=== PATIENT | female | born 1980 | race Caucasian/White ===

== ENCOUNTER 2016-08-31 12:31 | Outpatient (CLI) | payer OTHER, BC ==
[~2016-08-31] VITALS: Ht 170.2 cm; Wt 71.8 kg
[~2016-08-31 12:31] MED LIST: ALPR.25T PO; AZIT250T PO; BC PILL PO; CETI10TA17 PO; DIPH25CA79 PO; DIPH25TA82 PO; FAMO40TA6 PO; FOLI1TAB24 PO; HYDR1TAB75 PO; LORA10CA PO; MNTL10T PO; NAPR-1033 PO; NORG1TAB14 PO; OMEP10CA2 PO; OXYC-202 PO; PRD20T PO; PRD5T PO; PREN1TAB86 PO; PSEU30TA35 PO; RNT150T PO; SERT100T8 PO; [UNRECOGNIZED DRUG - CODE] PO; [UNRECOGNIZED DRUG - OTHER]
[2016-08-31] MEDS ORDERED: RANI150T15 PO (12:45)
[2016-08-31] MEDS ORDERED: OXYC-465 PO (12:45)
[2016-08-31 12:48] VITALS: BP 119/80
[2016-08-31 13:20] LABS: BASOPHILS % (AUTO) 0 % (0-10); EOSINOPHILS # (AUTO) 0.2 10^3/uL (0.0-0.3); EOSINOPHILS % (AUTO) 3 % (0-10); LYMPHOCYTES # (AUTO) 2.7 X 10^3 (1.0-4.0); LYMPHOCYTES % (AUTO) 35 % (12-44); MEAN CORPUSCULAR HEMOGLOBIN 31 PG (25-34); MEAN CORPUSCULAR HGB CONC 34 G/DL (32-36); MEAN CORPUSCULAR VOLUME 92 FL (80-99); MEAN PLATELET VOLUME 10.4 FL (7.4-10.4); MONOCYTES # (AUTO) 0.5 X 10^3 (0.0-1.0); MONOCYTES % (AUTO) 7 % (0-12); NEUTROPHILS # (AUTO) 4.3 X 10^3 (1.8-7.8); NEUTROPHILS % (AUTO) 56 % (42-75); PLATELET COUNT 192 10^3/uL (130-400); RED BLOOD COUNT 4.53 10^6/uL (4.35-5.85); RED CELL DISTRIBUTION WIDTH 12.2 % (10.0-14.5); WHITE BLOOD COUNT 7.7 10^3/uL (4.3-11.0)
== END 2016-08-31 14:25 | disposition home or self-care (01) ==
LOC: PREOP 12:31
PROVIDERS: ATTEND Obstetrics & Gynecology
DX: Z01.812 Encounter for preprocedural laboratory examination (principal); Z11.2 Encounter for screening for other bacterial diseases; N80.9 Endometriosis, unspecified; N93.8 Other specified abnormal uterine and vaginal bleeding; D64.9 Anemia, unspecified
CPT/HCPCS: 36415; 85025; 86850; 86900; 86901; 87081

== ENCOUNTER 2016-09-03 10:55 | Day surgery (SDC) | payer OTHER, BC ==
[~2016-09-03] VITALS: Ht 170.2 cm; Wt 71.8 kg
[~2016-09-03 10:55] MED LIST changes: +OXYC-465 PO; +RANI150T15 PO
[2016-09-03] MEDS ORDERED: ESTROGENS CONJ IV 25 MG/5 ML (PREMARIN) VIAL IV ONE ×2 (11:00→14:15)
[2016-09-03] MEDS ORDERED: LEVOFLOXACIN 250 MG/D5W 50 ML (PRE-MIX) IV ONE (11:00)
[2016-09-03] MEDS ORDERED: metroNIDAZOLE 500 MG/100 ML IVPB (PRE-MIX) IV ONE (11:00)
[2016-09-03 11:17] VITALS: BP 126/82
[2016-09-03] MEDS ORDERED: FAMOTIDINE 20MG/2ML IV (PEPCID) ONE (11:19)
[2016-09-03] MEDS: LACTATED RINGERS 1,000 ML IV PRN ×3 (11:29→15:10)
[2016-09-03] MEDS: fentaNYL INJECTION 100 MCG/2 ML AMP IVP NR ×2 (11:30→11:34)
[2016-09-03] MEDS ORDERED: FAMOTIDINE 20MG/2ML IV (PEPCID) IVP ONE (11:30)
[2016-09-03] MEDS ORDERED: D5 LR IV SOLUTION 1,000 ML IV SCH (11:36)
--- NOTE | 2016-09-03 11:40 | Progress Note-Post Operative ---
Post-Operative Progess Note Surgeon (s)/Access Services Representative (s) Surgeon CASIMIRO PATRICK MD Access Services Representative: Yani Broderick are in Pre-Operative Diagnosis RUSSEL/menorrhagia/uterine prolapse Post-Operative Diagnosis same with pathology pending recurrent endometriosis Procedure & Operative Findings Date of Procedure 09/03/16 Procedure Performed/Findings total laparoscopic hysterectomy with bilateral ddkiolrj-ysmrpp-mxzmejxj pathology pending Anesthesia Type Gen. endotracheal 2 Estimated Blood Loss Estimated blood loss (mL): minimal Specimens/Packing Specimens Removed uterus and fallopian tubes Packing: none CASIMIRO PATRICK MD Sep 03, 2016 11:40
--- NOTE | 2016-09-03 11:40 | Progress Note-Pre Operative ---
Pre-Operative Progress Note H&P Reviewed The H&P was reviewed, patient examined and no changes noted. Date Seen by Provider: Sep 03, 2016 Time Seen by Provider: 11:39 Date H&P Reviewed: Sep 03, 2016 Time H&P Reviewed: 11:39 Pre-Operative Diagnosis: RUSSEL/menorrhagia/uterine prolapse CASIMIRO PATRICK MD Sep 03, 2016 11:39 am
[2016-09-03] MEDS ORDERED: MEPERIDINE (DEMEROL) INJ 100 MG/ML IM PRN (11:45)
[2016-09-03] MEDS ORDERED: ONDANSETRON 4 MG/2 ML (SDV) Z0FRAN IVP PRN ×2 (11:45→15:15)
[2016-09-03] MEDS ORDERED: PROMETHAZINE INJ 25 MG/ML (PHENERGAN) AMP IM PRN (11:45)
[2016-09-03] MEDS ORDERED: WATER (STERILE) FOR INJ 10 ML BTL INJ ONE (11:45)
[2016-09-03] MEDS ORDERED: KETOROLAC 30 MG/ML VIAL IVP SCH (11:45)
[2016-09-03] MEDS ORDERED: BUP/EPI 0.25% 1:200,000 (MARCAINE) 10 ML VIAL IJ ONE (13:41)
[2016-09-03] MEDS ORDERED: proPOfol 200 MG/20 ML (DIPRIVAN) VIAL IV ONE (13:51)
[2016-09-03] MEDS ORDERED: DEXAMETHASONE PF 10 MG/ML (DECADRON) VIAL ONE (13:51)
[2016-09-03] MEDS ORDERED: LIDOCAINE PF 2% 5 ML (XYLOCAINE) VIAL ONE (13:51)
[2016-09-03] MEDS ORDERED: fentaNYL INJECTION 100 MCG/2 ML AMP ONE ×2 (13:52→14:48)
[2016-09-03] MEDS ORDERED: MIDAZOLAM 2 MG/2 ML (VERSED) VIAL ONE (13:52)
[2016-09-03] MEDS ORDERED: ROCURONIUM 50 MG/5 ML (ZEMURON) VIAL IV ONE (13:57)
[2016-09-03] MEDS ORDERED: WATER (STERILE) FOR INJECTION 10 ML ONE (15:03)
[2016-09-03] MEDS ORDERED: MEPERIDINE (DEMEROL) INJ 50 MG/ML IVP PRN (15:15)
[2016-09-03] MEDS ORDERED: GLYCOPYRROLATE 0.2 MG/ML (ROBINUL) 2 ML VIAL ONE (15:27)
[2016-09-03] MEDS ORDERED: LACTATED RINGERS 3,000 ML IV ONE (15:29)
[2016-09-03] MEDS ORDERED: NEOSTIGMINE (BLOXIVERZ ) 1 MG/1ML 10 ML VIAL ONE (15:30)
[2016-09-03] MEDS ORDERED: SEVOFLURANE (ULTANE) 15 ML INHAL SOLN ONE ×5 (15:30)
[2016-09-03] MEDS: morphine INJ 10 MG/ML 1ML (SYR OR VIAL) IVP PRN ×3 (15:54→16:10)
[2016-09-03] MEDS ORDERED: KETOROLAC 30 MG/ML VIAL ONE (16:01)
[2016-09-03 16:55] VITALS: BP 116/79
[2016-09-03 17:35] VITALS: BP 115/82
[2016-09-03 19:30] VITALS: BP 116/77
[2016-09-03] MEDS: KETOROLAC 30 MG/ML VIAL IVP SCH (22:54)
[2016-09-04 00:30] VITALS: BP 99/62
--- NOTE | 2016-09-04 00:32 | OPERATIVE REPORT ---
DATE OF SERVICE: 09/03/2016 PREOPERATIVE DIAGNOSES: 1. Chronic pelvic pain. 2. History of endometriosis. 3. Pelvic mass and dysfunctional uterine bleeding. POSTOPERATIVE DIAGNOSES: 1. Chronic pelvic pain. 2. History of endometriosis. 3. Pelvic mass and dysfunctional bleeding. OPERATIVE PROCEDURE: Total laparoscopic hysterectomy with bilateral salpingo-oophorectomy. OPERATIVE DESCRIPTION: With the patient in the supine position under satisfactory general anesthesia, the patient was prepped and draped in the usual fashion for abdominal and vaginal surgery. The urinary bladder was then drained via Delgado catheter to dependent drainage. Weighted speculum placed in the posterior fornix of the vagina. Cervix was exposed and grasped anteriorly with single tooth tenaculum. The uterus was sounded to 9.5 cm with uterine sound. The cervix was then serially dilated with Christopher dilators to accommodate a REENA II manipulator, which was placed in the usual manner with sutures of #1 Vicryl at the 3 and 9 o'clock positions to affix the cervix to the manipulator. The patient was brought in the low dorsolithotomy position now. The abdomen was exposed, a 12-mm incision was made, 4-cm superior to the umbilicus. An 8-mm incision were made, 9 cm lateral to the umbilicus. All the incision sites were infiltrated with 0.25% Marcaine with epinephrine prior to incision. A Veress needle was placed through the supraumbilical incision. Correct placement was confirmed with a water drop test. The abdomen was insufflated with 2.4 liters of carbon dioxide. The Veress needle was removed, and a 12 mm Optiview laparoscopic port placed. The abdominal wall was transilluminated and 8 mm ports were placed in the lateral incisions. The patient was placed in Trendelenburg. Using a vessel sealer on the right and a bipolar fenestrated grasper on the left, the pelvis was first examined. There were adhesions of the each ovary to the ovarian fossa with evidence of endometriosis causing those adhesions. The fallopian tube was torturous, but otherwise normal. The uterus was mottled in appearance, consistent with adenomyosis. The appendix was surgically absent. The upper abdomen was normal in appearance. The laparoscope was brought back to the pelvis. The right ovary was fairly densely adherent to the ovarian fossa. This was very careful and meticulously dissected free using blunt and some sharp dissection. Freeing the ovary as it was adherent over the route of the ureter with the ovary completely freed and the anatomy restored. The procedure was continued. Using a vessel sealer on the right, IP ligament was clamped, cauterized and divided that was continued step-arcos across the mesovarium to the broad ligament and round ligament across those structures to the side of the uterus and down the broad ligament to the cardinal ligament, which treated in the same manner. The same procedure was performed on the left allowing for removal of both tubes and ovaries with the uterus eventually. The endometriosis implants that were on and around the ovary where the care was taken to ensure the inclusion of those with removed tissue. The vessel sealer was replaced with a monopolar shear using that and the bipolar fenestrated grasper, the anterior lower uterine segment peritoneum was divided allowing the bladder to be dissected down off the lower uterine segment. A colpotomy incision was started at the 12 o'clock position and continued circumferentially until the entire colpotomy ring was exposed, then the uterus with the tubes and ovaries still attached was extracted through the vagina. Using a Cobra grasper and a Andrew Cut needle cement mixer driver, the vaginal cuff was then closed with 2 sutures of V-Loc estefani sutures starting from the right angle and continued to the midpoint from the left angle to the midpoint including inclusion of the cardinal ligament vessels and the closure. The peritoneum was brought back down over the vaginal cuff with the last few sutures. The pelvis was irrigated and examined for hemostasis which was complete. A few spots of endometriosis were touched with electrocautery using a monopolar shear. Hemostasis was now complete. No further remaining abnormal pathology. Sponge and needle counts were correct. The procedure was terminated. The operative instruments were removed under direct vision as were the ports. The patient was brought out of Trendelenburg. The abdomen was evacuated. The insufflating gas in the process of removing the ports. Skin incisions were stapled and the fascia of the supraumbilical incision was closed with qwrddi-qi-[id number] suture of 2-0 Vicryl. Sponge and needle counts were correct at the end of the procedure. Estimated blood loss for the procedure was minimal. The patient tolerated the procedure well and was transferred to the recovery room in a stable condition. Job ID: [id number] DocumentID: [id number] Dictated Date: 09/03/2016 15:37:24 Campus President Date: 09/03/2016 22:08:39 Dictated By: CASIMIRO PATRICK MD
[2016-09-04] MEDS: oxyCODONE/APAP 10/325MG (PERCOCET 10) TABLET PO PRN ×2 (00:34→03:12)
[2016-09-04] MEDS: KETOROLAC 30 MG/ML VIAL IVP SCH (03:12)
[2016-09-04] MEDS ORDERED: IBUPROFEN 800 MG (MOTRIN) TAB PO SCH ×2 (05:00→14:00)
[2016-09-04 05:30] VITALS: BP 90/54
[2016-09-04] MEDS ORDERED: DOCUSATE SODIUM 100 MG (COLACE) CAP PO SCH (09:00)
--- NOTE | 2016-09-04 09:00 | Progress Note-Standard ---
Standard Progress Note Progress Notes/Assess & Plan Date Seen by Provider: Sep 04, 2016 Time Seen by Provider: 08:59 Progress/Assessment & Plan this patient is without complaint. She is ambulating, voiding, tolerating by mouth well, has good pain control, patient is requesting discharge home. Vital Signs Date Time Temp Pulse Resp B/P (MAP) Pulse Ox O2 Delivery O2 Flow Rate FiO2 09/04/16 05:30 98.1 59 16 90/54 95 Room Air 09/04/16 00:30 96.9 57 16 99/62 96 Room Air 09/03/16 19:30 97.6 67 16 116/77 95 Room Air 09/03/16 17:35 97.9 83 16 115/82 98 Room Air 09/03/16 16:55 97.7 79 18 116/79 98 Room Air 09/03/16 11:17 98.0 74 18 126/82 96 Room Air I & O 09/04/16 07:00 Intake Total 6450 ml Output Total 2960 ml Balance 3490 ml vital signs are stable. Patient is afebrile. Abdomen is benign. Bowel sounds are present. Extremities show no clubbing cyanosis. There is no Homans sign. Assessment and plan is operative day number 1 doing well. Plan is for discharge home with follow-up in clinic Final Diagnosis DUB/menorrhagia/uterine prolapse CASIMIRO PATRICK MD Sep 04, 2016 9:00 am
[2016-09-04] MEDS ORDERED: IBUP-1780 PO (09:02)
[2016-09-04] MEDS ORDERED: OXYC-465 PO (09:02)
[2016-09-04] MEDS ORDERED: DOCU100C37 PO (09:02)
--- NOTE | 2016-09-04 09:03 | Discharge Instructions ---
Discharge Instructions Discharge Medications New, Converted or Re-Newed RX: RX on Chart Patient Instructions Patient Instructions: as directed Return to The Hospital For: as directed Activity & Diet Discharge Diet: No Restrictions Activity as Tolerated: No Orders-Post D/C & Referrals Follow Up Appt: return to clinic on Tuesday, September 08, 2016 at 930 a.m. for staple removal Call to make follow up appt. for patient in 4 weeks. Activity: Rest for 24 hours, than as tolerated. Wound Care: May remove Band-Aid tomorrow. Replace as desired. Keep incisions clean and dry. Wash daily with soap and water. Please call in RX to patient pharmacy. Diet: As tolerated-Clear Liquids only if nauseated. Tomorrow, may shower or tub bathe as desired. No driving for 24 hours, no alcoholic beverages for 24 hours, and nothing per vagina (no tampons, douching, or intercourse) for 8 weeks. Patient to return to the clinic as soon as possible for: Temperature greater than 101F, Severe Pain, Foul discharge from incision or vagina, Excessive Bleeding (more than a period). CASIMIRO PATRICK MD Sep 04, 2016 9:03 am
[2016-09-04 09:09] VITALS: BP 95/57
== END 2016-09-04 10:10 | disposition home or self-care (01) ==
LOC: SDC 10:55 → WS 17:26 → SDC 09-04 10:10
PROVIDERS: ATTEND Obstetrics & Gynecology
DX: N93.8 Other specified abnormal uterine and vaginal bleeding (principal); N73.6 Female pelvic peritoneal adhesions (postinfective); N80.1 Endometriosis of ovary; N80.0 Endometriosis of uterus; N83.201 Unspecified ovarian cyst, right side; N83.202 Unspecified ovarian cyst, left side; R10.2 Pelvic and perineal pain; F17.210 Nicotine dependence, cigarettes, uncomplicated; F32.9 Major depressive disorder, single episode, unspecified; Z79.899 Other long term (current) drug therapy
CPT/HCPCS: 84703; 88307; 94664; 96361; 96372; 96375

== ENCOUNTER → 2018-07-17 | Outpatient (CLI) | payer BC, OTHER ==
[~2018-07-17] MED LIST changes: +DOCU100C37 PO; +IBUP-1780 PO; -OXYC-202 PO; +OXYC1TAB12 PO; -RANI150T15 PO; +RANI150T46 PO
--- NOTE | 2018-07-17 08:54 | Diagnostic Imaging Report ---
PROCEDURE: CT abdomen and pelvis without contrast. TECHNIQUE: Multiple contiguous axial images were obtained through the abdomen and pelvis without the use of intravenous contrast. Auto Exposure Controls were utilized during the CT exam to meet ALARA standards for radiation dose reduction. INDICATION: Urinary tract infections. Compared 10/31/2015. FINDINGS: Stable hyperdense nodule partly exophytic upper pole cortex right kidney posteriorly oriented is 8 mm and is believed to be a chronic hemorrhagic cyst. There is no radiodense urinary tract calculus disease and there is no hydronephrosis. There is no perinephric or periureteric edema. The urinary bladder appeared unremarkable. There are postsurgical changes presumed to reflect previous appendectomy. There is no diverticulitis. The liver, gallbladder, spleen, pancreas and adrenals are negative. The aorta is nonaneurysmal. There is no ascites, abscess, hematoma or other fluid collection. IMPRESSION: 1. Unobstructed urinary tracts. No stone disease. Stable hyperdense exophytic right upper pole renal nodule believed to be a hemorrhagic cyst is unchanged over 2-1/2 years and benign. 2. No acute-appearing abnormality. Dictated by: Dictated on workstation # [id number]
== END ==
LOC: RAD 08:17
PROVIDERS: ATTEND Urology
DX: N39.0 Urinary tract infection, site not specified (principal); N28.89 Other specified disorders of kidney and ureter; Z90.49 Acquired absence of other specified parts of digestive tract
CPT/HCPCS: 74176

== ENCOUNTER → 2020-06-30 | Outpatient (CLI) | payer BC ==
[~2020-06-30] MED LIST changes: -FOLI1TAB24 PO; +FOLI1TAB33 PO; -OXYC-465 PO; +OXYC-556 PO; +PS30T PO; -PSEU30TA35 PO; +RANI-613 PO; -RANI150T46 PO; +SERT-414 PO; -SERT100T8 PO
--- NOTE | 2020-07-01 13:06 | Diagnostic Imaging Report ---
INDICATION: Routine screening. Comparison is made with prior mammogram 11/13/2014. 2-D and 3-D bilateral screening mammography was performed with CAD. Both breasts are heterogeneously dense, limiting the sensitivity of mammography. The parenchymal pattern is stable. No mass or malignant appearing microcalcifications are seen. Axillae are unremarkable. IMPRESSION: BI-RADS Category 1 No mammographic features suspicious for malignancy are identified. ACR BI-RADS Category 1: Negative. Result letter will be mailed to the patient. Note: At least 10% of breast cancer is not imaged by mammography. Dictated by: Dictated on workstation # [id number]
== END ==
LOC: RAD 15:45
PROVIDERS: ATTEND Obstetrics & Gynecology
DX: Z12.31 Encounter for screening mammogram for malignant neoplasm of breast (principal)
CPT/HCPCS: 77063; 77067

== ENCOUNTER 2021-07-21 08:00 | Emergency (ER) | payer BC ==
[~2021-07-21] VITALS: Ht 167 cm; Wt 69.3 kg
[2021-07-21] MEDS ORDERED: BENZONATATE 100 MG (TESSALON) CAPSULE PO STA (08:12)
--- NOTE | 2021-07-21 08:16 | ED Cough/URI ---
General Stated Complaint: SOB,COUGH,BODY ACHES Source: patient Exam Limitations: no limitations History of Present Illness Date Seen by Provider: July 21, 2021 Time Seen by Provider: 08:09 Initial Comments Patient is a 41-year-old female who presents to the emergency department today with a chief complaint of URI type symptoms. Headache, nasal congestion, p ersistent intermittently productive cough, feeling short of breath. Symptom onset last Tuesday. Seen by her primary care provider on Tuesday. Started on Keflex. States she is using krkx-zfp-swlpjty Flonase but her symptoms are worsening. She is a smoker but states that she has been unable to smoke recently. No rashes. A little nausea with cough. No diarrhea. She does have diffuse body aches. She states her primary care practitioner tested her for COVID in the office on Tuesday and it was negative. All other review of systems reviewed and negative except as stated. Timing/Duration: week, getting worse Severity/Quality: moderate Associated Symptoms: chest pain/soreness, cough, earache, muscle aches, nasal congestion, nasal drainage, shortness of breath Allergies and Home Medications Allergies Coded Allergies: Penicillins (Verified Allergy, Severe, 08/31/16) Sulfa (Sulfonamide Antibiotics) (Verified Allergy, Severe, 08/31/16) tetracycline (Verified Allergy, Unknown, 08/31/16) Uncoded Allergies: MIGRAINE MEDICATION STARTS WITH A T (Allergy, Unknown, 12/12/15) Patient Home Medication List Home Medication List Reviewed: Yes Cetirizine HCl (Cetirizine HCl) 10 Mg Tablet, 10 MG PO DAILY, (Reported) Entered as Reported by: CLINT GO on 11/06/15 1556 Docusate Sodium (Docusate Sodium) 100 Mg Capsule, 100 MG PO BID Prescribed by: CASIMIRO CADE on 09/04/16 09 Ibuprofen (Ibuprofen) 800 Mg Tablet, 800 MG PO Q6H Prescribed by: CASIMIRO CADE on 09/04/16 09 Norgestimate-Ethinyl Estradiol (Sprintec 28 Day Tablet) 1 Each Tablet, 1 EACH PO DAILY, (Reported) Entered as Reported by: CLINT GO on 11/06/15 1557 Oxycodone HCl/Acetaminophen (Oxycodone-Acetaminophen 10-325) 1 Each Tablet, 1 EACH PO PRN, (Reported) Entered as Reported by: CLINT GO on 08/31/16 1245 Oxycodone HCl/Acetaminophen (Oxycodone-Acetaminophen 10-325) 1 Each Tablet, 1-2 TAB PO Q6H PRN for PAIN-MILD TO MODERATE Prescribed by: CASIMIRO CADE on 09/04/16 0902 Ranitidine HCl (Zantac) 150 Mg Tablet, 150 MG PO DAILY, (Reported) Entered as Reported by: CLINT GO on 08/31/16 1245 Sertraline HCl (Sertraline HCl) 100 Mg Tablet, 100 MG PO DAILY, (Reported) Entered as Reported by: CLINT GO on 11/06/15 1556 Review of Systems Review of Systems Constitutional: see HPI, fever (99), malaise EENTM: tearing, nose congestion Respiratory: cough, phlegm, short of breath Cardiovascular: chest pain Gastrointestinal: nausea Genitourinary: no symptoms reported : No Musculoskeletal: muscle cramps Skin: no symptoms reported Psychiatric/Neurological: Headache All Other Systems Reviewed Negative Unless Noted: Yes Past Fswvjfh-Klvgya-Wjqhxi Hx Immunizations Up To Date Tetanus Booster (TDap): Less than 5yrs Seasonal Allergies Seasonal Allergies: Yes Past Medical History Appendectomy, Section Headaches /Migraines Reproductive Disorders: Yes (CPP, DUB, PELVIC MASS) Female Reproductive Disorders: Endometriosis, Ovarian Cyst Sexually Transmitted Disease: No HIV/AIDS: No Gastroesophageal Reflux, Polyps Loss of Vision: Denies Hearing Impairment: Denies Depression Adverse Reaction/Blood Tranf: No (HAS HAD BLOOD WITH NO REACTION) Family Medical History Diabetes mellitus G8 SISTER Hypertension 19 FATHER Physical Exam Vital Signs - First Documented 07/21/21 08:05 Temp 36.9 Pulse 85 Resp 22 B/P (MAP) 142/90 (107) Pulse Ox 98 O2 Delivery Room Air Capillary Refill : Height: 5'7.00" Weight: 158lbs. 4.0oz. [id number]; 24.8 BMI Method: General Appearance: WD/WN, no apparent distress Eyes: Bilateral Eye Normal Inspection, Bilateral Eye PERRL, Bilateral Eye EOMI HEENT: PERRL/EOMI, normal ENT inspection, TMs normal, pharynx normal Neck: non-tender, full range of motion, supple Respiratory: lungs clear, normal breath sounds, no respiratory distress, no accessory muscle use Cardiovascular: regular rate, rhythm Extremities: normal range of motion, normal inspection Neurologic/Psychiatric: alert, normal mood/affect, oriented x 3 Skin: normal color, warm/dry Progress/Results/Core Measures Suspected Sepsis SIRS Temperature: Pulse: Respiratory Rate: Blood Pressure / Mean: Results/Orders Lab Results Laboratory Tests Test 07/21/21 08:14 Range/Units Influenza Type A (RT-PCR) Not Detected Not Detecte Influenza Type B (RT-PCR) Not Detected Not Detecte SARS-CoV-2 RNA (RT-PCR) Not Detected Not Detecte My Orders Orders - BHAVANA VEGA MD Chest 1 View, Ap/Pa Only (07/21/21 08:12) Covid 19 Inhouse Test (07/21/21 08:12) Influenza A And B By Pcr (07/21/21 08:12) Isolation Central Supply Req (07/21/21 08:12) Benzonatate Capsule (Tessalon Perles) (07/21/21 08:12) Vital Signs/I&O 07/21/21 08:05 Temp 36.9 Pulse 85 Resp 22 B/P (MAP) 142/90 (107) Pulse Ox 98 O2 Delivery Room Air Capillary Refill : Departure Impression Primary Impression: Upper respiratory infection Qualified Codes: J06.9 - Acute upper respiratory infection, unspecified Additional Impression: Headache Qualified Codes: R51.9 - Headache, unspecified Disposition: 01 HOME, SELF-CARE Condition: Stable Departure-Patient Inst. Decision time for Depature: 09:13 Referrals: EROS,LOCAL PHYSICIAN (PCP) Primary Care Physician YVON GONZÁLES APRN (Family) Primary Care Physician Patient Instructions: Viral Syndrome (DC) Add. Discharge Instructions: Continue your antibiotics as prescribed. Please finish the entire course. Prednisone 50 mg once daily in the morning tomorrow and for the next 4 days. Mkja-wve-oqorjza Flonase 1 spray in each nostril twice a day. Drink plenty of fluids to stay well-hydrated. Tylenol with codeine 1 to 2 teaspoons every 6 hours as needed for cough. Run a coolmist humidifier at night. You can also continue to use the Mucinex with all the above medications. Vicks vapor rub may help your congestion as well. Please try and quit smoking. Return to the emergency department for high fever over 101 increasing shortness of breath or any other emergent concerning symptoms. Scripts Acetaminophen with Codeine (Acetaminop-Codeine 120-12 mg/5) 120 Mg-12 Mg/5 Ml (5 Ml) Solution 5 ML PO Q6H PRN for cough, #120 EA 1-2 teaspoons every 6 hours as needed for cough Prov: BHAVANA VEGA MD 07/21/21 Prednisone (Prednisone) 50 Mg Tab 50 MG PO DAILY for 4 Days, #4 TAB Prov: BHAVANA VEGA MD 07/21/21 BHAVANA VEGA MD July 21, 2021 08:16
--- NOTE | 2021-07-21 09:01 | Diagnostic Imaging Report ---
Indication: Cough and congestion and fever Frontal chest obtained at 9:00 hours a.m. There is no prior study for comparison. Heart and mediastinal silhouette are unremarkable. There is mild central vascular prominence. There is no focal consolidation or pneumothorax or pleural fluid. IMPRESSION: Mild central vascular prominence without focal infiltrate or pleural fluid. Dictated by: Dictated on workstation # [id number]
[2021-07-21] MEDS ORDERED: predniSONE 20 MG TAB PO ONE (09:15)
[2021-07-21] MEDS ORDERED: KETOROLAC 30 MG/ML VIAL IM ONE (09:15)
[2021-07-21] MEDS ORDERED: PRD50T PO (09:16)
[2021-07-21] MEDS ORDERED: ACET5ELI PO (09:16)
[2021-07-21 09:55] VITALS: BP 114/77
== END 2021-07-21 09:57 | disposition home or self-care (01) ==
LOC: EDUNIT# 08:00 → ER 08:02
DX: J06.9 Acute upper respiratory infection, unspecified (principal); F17.210 Nicotine dependence, cigarettes, uncomplicated; Z20.822 Contact with and (suspected) exposure to COVID-19
CPT/HCPCS: 71045; 87636

== ENCOUNTER → 2022-05-03 | Outpatient (CLI) | payer BC ==
[~2022-05-03] MED LIST changes: +ACET5ELI PO; +PRD50T PO
--- NOTE | 2022-05-03 12:49 | Diagnostic Imaging Report ---
INDICATION: Routine screening. COMPARISON: 06/30/2020 and 11/13/2014. TECHNIQUE: 2D and 3D bilateral screening mammography was performed with CAD. FINDINGS: Both breasts are heterogeneously dense, limiting the sensitivity of mammography. The parenchymal pattern is stable. No mass or malignant-appearing microcalcifications are seen. Axillae are unremarkable. IMPRESSION: No mammographic features suspicious for malignancy are identified. ACR BI-RADS Category 1: Negative. Result letter will be mailed to the patient. Note: At least 10% of breast cancer is not imaged by mammography. Dictated by: Dictated on workstation # [id number]
== END ==
LOC: RAD 07:20
PROVIDERS: ATTEND Nurse Practitioner Family
DX: Z12.31 Encounter for screening mammogram for malignant neoplasm of breast (principal); Z00.00 Encounter for general adult medical examination without abnormal findings; Z12.11 Encounter for screening for malignant neoplasm of colon; Z76.0 Encounter for issue of repeat prescription; K21.9 Gastro-esophageal reflux disease without esophagitis; F41.1 Generalized anxiety disorder; J30.89 Other allergic rhinitis; E78.49 Other hyperlipidemia
CPT/HCPCS: 77063; 77067

== ENCOUNTER 2022-05-12 05:43 | Outpatient (CLI) | payer BC ==
[~2022-05-12] VITALS: Ht 167.6 cm; Wt 70.8 kg
[2022-05-12] MEDS ORDERED: CYAN250010 PO (11:31)
[2022-05-12] MEDS ORDERED: LACT1CAP64 PO (11:31)
[2022-05-12] MEDS ORDERED: ATOR20TA66 PO (11:31)
[2022-05-12] MEDS ORDERED: CHOL500044 PO (11:31)
[2022-05-12] MEDS ORDERED: ESTR2TAB4 PO (11:31)
[2022-05-12] MEDS ORDERED: OXYB10TA29 PO (11:31)
[2022-05-12] MEDS ORDERED: CRAN1CAP5 PO (11:31)
== END 2022-05-12 11:38 | disposition home or self-care (01) ==
LOC: PREOP 05:43
PROVIDERS: ATTEND Internal Medicine
DX: Z01.818 Encounter for other preprocedural examination (principal)

== ENCOUNTER 2022-05-21 08:18 | Day surgery (SDC) | payer BC ==
--- NOTE | 2022-05-11 06:47 | HISTORY AND PHYSICAL ---
PANENDOSCOPY HISTORY AND PHYSICAL HISTORY OF PRESENT ILLNESS: The patient is a 41-year-old white female being referred for colonoscopy as well as EGD. She has a longstanding history of reflux symptoms and had focal short segment Kat's noted on EGD done in 2016 without evidence for dysplasia. Currently, she is only taking omeprazole several days a week as needed for heartburn symptoms. She denies dysphagia, change in weight, bright red blood per rectum or melena. She had one other colonoscopy done over 10 years ago, at which time she did have reportedly several colon polyps removed. She reports that her weight has been stable. MEDICATIONS: On admission include p.r.n. omeprazole. She takes oxybutynin ER for overactive bladder 10 mg daily, atorvastatin 20 mg daily for hyperlipidemia. Estradiol 2 mg daily, cetirizine 10 mg daily and vitamin D3 5000 units daily, with a 50 billion colony forming units probiotic daily. PAST MEDICAL HISTORY: Significant for overactive bladder and hyperlipidemia. FAMILY HISTORY: She is not aware of any family history for GI tract malignancy. SOCIAL HISTORY: She is with no past significant drinking history. She has a past smoking history, currently for the last several years. Will occasionally vape nicotine. REVIEW OF SYSTEMS: CONSTITUTIONAL: Denies night sweats, chills, fever or change in weight. GASTROINTESTINAL: As noted in the HPI. CARDIOVASCULAR: Denies chest pain, shortness of breath, orthopnea, PND, or syncope. PULMONARY: Denies cough, wheezing or shortness of breath. PHYSICAL EXAMINATION: GENERAL: Reveals a white female who appeared to be in no acute distress. VITAL SIGNS: Weight 156 pounds, blood pressure 126/78. HEENT: Unremarkable. Sclerae nonicteric. CHEST: Clear to auscultation. CARDIOVASCULAR: Reveals regular rate and rhythm without murmur, S3, or S4. ABDOMEN: Soft, supple without mass, organomegaly, or tenderness. EXTREMITIES: Revealed no cyanosis, clubbing or edema. ASSESSMENT: The patient is being set up for surveillance colonoscopy due to past history of colon polyps as well as diagnostic EGD due to past history of short segment Kat's. Prep instructions were given and questions were answered. Job ID: [id number] DocumentID: [id number] Dictated Date: 05/03/2022 16:30:25 Drafting Instructor Date: 05/03/2022 16:52:00 Dictated By: SHAHLA ECHOLS MD [facility]
[~2022-05-21] VITALS: Ht 167.6 cm; Wt 70.8 kg
[~2022-05-21 08:18] MED LIST changes: +ATOR20TA66 PO; +CHOL500044 PO; +CRAN1CAP5 PO; +CYAN250010 PO; +ESTR2TAB4 PO; +LACT1CAP64 PO; +OXYB10TA29 PO
[2022-05-21] MEDS ORDERED: LACTATED RINGERS 1,000 ML IV STA (08:23)
--- NOTE | 2022-05-21 08:24 | Pre-Op Note & Conscious Sedat ---
Pre-Operative Progress Note Date H&P Reviewed: May 21, 2022 Time H&P Reviewed: 08:23 History & Physical: H&P Reviewed, Patient Examed, No changes noted Pre-Op Diagnosis: screening colon and Uriel's surviellance Conscious Sedation Pre-Proced ASA Score 2 For ASA 3 and 4: Consider anesthesia and medical clearance. Also, for patients with a history of failed moderate sedation consider anesthesia. Airway Lungs Heart ASA score ASA 1: a normal healthy patient ASA 2: a patient with a mild systemic disease (mid diabetes, controlled hypertension, obesity ASA 3: a patient with a severe systemic disease that limits activity (angina, COPD, prior Myocardial infarction) ASA 4: a patient with an incapacitating disease that is a constant threat to life (CHF, renal failure) ASA 5: a moribund patient not expected to survive 24 hrs. (ruptured aneurysm) ASA 6: a declared brain- patient whose organs are being harvested. For emergent operations, add the letter E after the classification Mallampati Classification Grade 2 Sedation Plan Analgesia, Amnesia, Plan communicated to team members, Discussed options with patient/fam, Discussed risks with patient/fam The patient is an appropriate candidate to undergo the planned procedure, sedation, and anesthesia. The patient immediately re-assessed prior to indication. SHAHLA ECHOLS MD May 21, 2022 08:24
[2022-05-21] MEDS ORDERED: HURRICAINE EXT TUBE (BENZOCAINE) XX PRN (08:30)
[2022-05-21 08:45] VITALS: BP 127/90
[2022-05-21] MEDS ORDERED: PROPOFOL INJECTION 50 ML IV ONE (09:27)
[2022-05-21 10:03] VITALS: BP 88/59
--- NOTE | 2022-05-21 10:03 | Progress Note-Post Operative ---
Post-Procedure Note Physician (s)/Cook Helper Dessert (s) Physician SHAHLA ECHOLS MD Pre-Procedure Diagnosis Pre-Procedure Diagnosis: screening colon and Uriel's surviellance Post-Procedure Diagnosis Post-operative diagnosis: The patient was placed in the left lateral decubitus position. The endoscope was inserted into the oral cavity and under direct physician advanced down the esophagus through the stomach and second portion of the duodenum. A careful inspection was made as the endoscope was withdrawn. Findings: The posterior pharynx arytenoid aperture epiglottis and true and false vocal folds were unremarkable. Proximal midesophagus were unremarkable. There were several fingers of columnar appearing mucosa extending from the Z-line proximally the longest one about 2 cm consistent with short segment Kat's. There was no evidence for ulceration or erosive esophagitis no nodularity was noted. Four-quadrant biopsies were obtained and submitted for histopathology. The cardia fundus antrum pylorus pyloric channel duodenal bulb and second portion were unremarkable. Assessment: Findings compatible with short segment Kat's were noted without evidence for erosive esophagitis or malignancy to gross inspection. Four-quadrant biopsies were obtained. This was an otherwise normal EGD with no evidence for significant hiatal hernia formation. We then proceeded with colonoscopy. Prior to undergoing colonoscopy digital rectal evaluation was performed. Anal suture tone was normal and the perianal reflexes intact. No abnormalities noted on digital inspection anal canal or distal rectal vault. The colonoscope was inserted into the rectum and direct physician advanced the cecum. The cecum was identified by identification of the ileocecal valve and cecal strap. Photographic documentation obtained. Careful suction was made as colonoscope was withdrawn. Quality the prep was good. Findings there are no evidence for internal or external hemorrhoids. The rectum sigmoid colon descending colon splenic flexure transverse colon hepatic flexure ascending colon and cecum were unremarkable. There was no evidence for neoplasia or diverticular disease. A/P 1. Normal colonoscopy to the cecum. Would advocate consideration for repeat screening colonoscopy in 10 years. CC: Tessy Ocampo APRN. SHAHLA ECHOLS MD May 21, 2022 10:03
[2022-05-21 10:08] VITALS: BP 95/74
[2022-05-21 10:10] VITALS: BP 100/61
[2022-05-21 10:35] VITALS: BP 100/61
--- NOTE | 2022-05-21 10:46 | Anesthesia-General Post-Op ---
MAC Patient Condition Mental Status/LOC: Same as Preop Cardiovascular: Satisfactory Nausea/Vomiting: Absent Respiratory: Satisfactory Pain: Controlled Complications: Absent Post Op Complications Complications None Follow Up Care/Instructions Patient Instructions None needed. Anesthesiology Discharge Order Discharge Order Patient is doing well, no complaints, stable vital signs, no apparent adverse anesthesia problems. No complications reported per nursing. FERNIE LANCASTER DO May 21, 2022 10:46
== END 2022-05-21 10:50 | disposition home or self-care (01) ==
LOC: ENDO 08:18
PROVIDERS: ATTEND Internal Medicine
DX: Z12.11 Encounter for screening for malignant neoplasm of colon (principal); K22.70 Barrett's esophagus without dysplasia; Z86.010 Personal history of colon polyps; F17.210 Nicotine dependence, cigarettes, uncomplicated; F17.290 Nicotine dependence, other tobacco product, uncomplicated; E78.5 Hyperlipidemia, unspecified; N32.81 Overactive bladder; Z79.899 Other long term (current) drug therapy
CPT/HCPCS: 88305

== ENCOUNTER → 2022-12-30 | Outpatient (CLI) | payer BC ==
[~2022-12-30] MED LIST changes: +CATHETER FLUSH 10 ML SYR IVP PRN
--- NOTE | 2022-12-30 10:07 | Diagnostic Imaging Report ---
PROCEDURE: US Gallbladder. TECHNIQUE: Multiple real-time grayscale images were obtained over the right upper quadrant in various projections. INDICATION: Epigastric pain Liver parenchyma is homogeneous with normal echotexture. Portal vein is patent with hepatopetal flow. There is a 2 x 4 mm polyp in the gallbladder. There are no mobile calculi seen. Gallbladder wall is not thickened. Common duct is not dilated. Pancreas appears normal. Aorta and IVC are normal. Right kidney measures 9.7 cm in length and appears normal. There is no ascites. IMPRESSION: Small gallbladder polyp. Dictated by: Dictated on workstation # [id number]
--- NOTE | 2022-12-30 11:06 | Diagnostic Imaging Report ---
INDICATION: Epigastric pain. COMPARISON: Sonogram from earlier same day. Tc-99m Choletec 5.48 mCi IV followed by IV CCK. FINDINGS: The upper abdomen was imaged for 60 minutes with the gamma camera. There is normal appearance of activity in the liver. There is activity in the common duct and gallbladder by 60 minutes. After 60 minutes, the patient received CCK. After 30 minutes, the gallbladder ejection fraction was calculated to be 64% which is normal. IMPRESSION: Normal hepatobiliary study with GBEF of 64%. Dictated by: Dictated on workstation # [id number]
== END ==
LOC: RAD 07:14
PROVIDERS: ATTEND Nurse Practitioner Family
DX: Z00.00 Encounter for general adult medical examination without abnormal findings (principal); Z12.11 Encounter for screening for malignant neoplasm of colon; K21.9 Gastro-esophageal reflux disease without esophagitis; L30.9 Dermatitis, unspecified; R74.8 Abnormal levels of other serum enzymes; K82.4 Cholesterolosis of gallbladder
CPT/HCPCS: 76705; 78227; A9537

== ENCOUNTER → 2023-01-24 | Outpatient (CLI) | payer BC ==
[~2023-01-24] VITALS: Ht 167.6 cm; Wt 75.0 kg
[~2023-01-24] MED LIST changes: -CATHETER FLUSH 10 ML SYR IVP PRN; +[UNRECOGNIZED DRUG - OTHER]
== END | disposition home or self-care (01) ==
LOC: PREOP 05:34
PROVIDERS: ATTEND Surgery
DX: Z01.818 Encounter for other preprocedural examination (principal)

== ENCOUNTER 2023-01-27 09:41 | Day surgery (SDC) | payer BC ==
[2023-01-27] VITALS (11 sets, daily range): BP systolic 102–125; BP diastolic 68–81
[~2023-01-27] VITALS: Ht 167.6 cm; Wt 75.0 kg
[2023-01-27] MEDS ORDERED: CLINDAMYCIN 600 MG/50 ML IVPB 50 ML IV ONE (10:00)
[2023-01-27] MEDS ORDERED: LACTATED RINGERS 1,000 ML 1,000 ML IV PRN (10:00)
--- NOTE | 2023-01-27 10:17 | Progress Note-Pre Operative ---
Pre-Operative Progress Note Date H&P Reviewed: Jan 27, 2023 Time H&P Reviewed: 10:17 History & Physical: H&P Reviewed, Patient Examed, No changes noted Pre-Operative Diagnosis: gallbladder polyp LYLE SANTOS DO Jan 27, 2023 10:17
[2023-01-27] MEDS ORDERED: fentaNYL INJECTION 100 MCG/2 ML VIAL ONE ×2 (10:39→13:08)
[2023-01-27] MEDS ORDERED: ROCURONIUM 50 MG/5 ML VIAL IV ONE (10:39)
[2023-01-27] MEDS ORDERED: NEOSTIGMINE 1 MG/1ML 10 ML VIAL ONE (10:39)
[2023-01-27] MEDS ORDERED: MIDAZOLAM INJ 2 MG/2 ML VIAL ONE (10:39)
[2023-01-27] MEDS ORDERED: GLYCOPYRROLATE INJ 0.2 MG/ML 2 ML VIAL ONE (10:39)
[2023-01-27] MEDS ORDERED: ONDANSETRON INJECTION 4 MG/2 ML (SDV) ONE (10:39)
[2023-01-27] MEDS ORDERED: LIDOCAINE PF 2% 5 ML VIAL ONE (10:39)
[2023-01-27] MEDS ORDERED: proPOfol INJECTION 200 MG/20 ML VIAL IV ONE (10:39)
[2023-01-27] MEDS ORDERED: dexAMETHasone INJ 10 MG/ML 1 ML VIAL ONE (10:39)
[2023-01-27] MEDS ORDERED: LIDOCAINE 2% w/EPI 1:100,000 20 ML VIAL ONE (11:38)
[2023-01-27] MEDS ORDERED: KETOROLAC INJ 30 MG/ML VIAL ONE (12:37)
[2023-01-27] MEDS ORDERED: ACHD5005 PO (12:43)
[2023-01-27] MEDS ORDERED: DOCU-143 PO (12:43)
[2023-01-27] MEDS ORDERED: SEVOFLURANE (ULTANE) 15 ML INHAL SOLN ONE (12:43)
--- NOTE | 2023-01-27 12:51 | Discharge Inst-Simple/Standard ---
Discharge Inst-Standard Discharge Medications New, Converted or Re-Newed RX: Transmitted to Pharmacy Patient Instructions/Follow Up Plan of Care/Instructions/FU: 2 weeks Haily Activity as Tolerated: No Discharge Diet: Regular Diet Other Inst to Patient Follow up Appt: Make appointment for 2 weeks. Instructions: No lifting greater than 10 pounds. No strenuous activity. May shower in 24 hours, no tub bath or soaking. Use incentive spirometer at home as directed. No Smoking Skin/Wound Care: You have special glue over incision, it will fall off on it's own. Symptoms to Report: Appetite Changes, Extremity Discoloration, Numbness/Tingling, Swelling Increased, Bleeding Excessive, Eyesight Changes, Pain Increased, Urine Color Change, Constipation(Persistent), Fever over 101 degree F, Pain/Pressure in chest, Urinating Difficulty, Cough Up/Vomit Blood, Heart Beat Irreg/Pounding, Pain/Pressure in jaw, Vaginal Bleeding Increase, Cramps in feet or legs, Lightheadedness, Pain/Pressure in shoulder, Diarrhea(Persistent), Memory Changes Suddenly, Questions/Concerns, Weight gain consecutive days, Dizziness/Fainting, Nausea/Vomiting, Shortness of Breath, Weight gain over 2 pounds. If eyes or skin turn yellow notify physician. If questions or concerns contact your physician Or seek help at emergency department. LYLE SANTOS DO Jan 27, 2023 12:50
--- NOTE | 2023-01-27 12:53 | Progress Note-Post Operative ---
Post-Operative Progess Note Surgeon (s)/Radio Recorder (s) Surgeon LYLE SANTOS DO Radio Recorder: Dr. Delaney to asisst inretraction dissection and closure. Pre-Operative Diagnosis gallbladder polyp Post-Operative Diagnosis same Procedure & Operative Findings Date of Procedure 01/27/23 Procedure Performed/Findings PROCEDURE: Laparoscopic cholecystectomy with intraoperative cholangiogram. COMPLICATIONS: None. PROCEDURE: The patient was taken to the operating suite and was prepped and draped in sterile fashion. A surgical pause was performed. Just superior to the umbilicus, a 12 mm incision was made. Dissection was taken down to the fascia, which was then scored and grasped with a Carly and the abdomen was then entered. A 0 Vicryl suture was placed in a [id number] fashion and a Francis trocar was placed and secured. Pneumoperitoneum was achieved. A 5mm trochar place in the subxyphoid and 2 in the right upper quadrant. The gallbladder was then grasped and elevated by Dr. Delaney. Adhesions taken down. The cystic duct, and cystic artery were then dissected out. Clip was placed on the distal portion of the cystic duct which was then partially transected. An arrow catheter was inserted into the duct. The cholangiogram was then performed. No filing defects and contrast made its way into the duodenum. Catheter removed. Clips were placed on proximal portion of the cystic duct and then the duct was then transected. Clips were placed along the proximal and distal portion of the cystic artery which was then transected. Hook cautery was used to dissect the gallbladder from the gallbladder fossa achieving hemostasis. The gallbladder was placed in an Endobag and removed through the 12 mm trocar site. The abdomen was then reinspected. Copious amounts of irrigation were used to irrigate the abdomen and there were no signs of active bleeding. Hemostasis had been achieved. The 12 mm fascial defect was then closed with 0 Vicryl suture that had been placed in a [id number] fashion. The abdomen was then desufflated, the trocars were removed. The abdomen was then washed and dried. The skin was then closed using 4-0 Monocryl in a subcuticular fashion. The abdomen was washed and dried and Skin Affix was place over incisions. Patient tolerated the procedure well without any complications and was taken to the recovery room in stable condition. Anesthesia Type general Estimated Blood Loss Estimated blood loss (mL): minimal Specimens/Packing Specimens Removed gallbladder LYLE SANTOS DO Jan 27, 2023 12:53
[2023-01-27] MEDS ORDERED: HYDROmorphone INJECTION 2 MG/ML VIAL IV ONE (13:00)
[2023-01-27] MEDS ORDERED: ONDANSETRON INJECTION 4 MG/2 ML (SDV) IVP PRN (13:00)
[2023-01-27] MEDS ORDERED: PROMETHAZINE INJ 25 MG/ML VIAL IVP ONE (13:00)
[2023-01-27] MEDS ORDERED: fentaNYL INJECTION 100 MCG/2 ML VIAL IVP ONE (13:00)
[2023-01-27] MEDS ORDERED: HYDROcodone/ACETAMINOPHEN 5 MG/325 MG TABLET PO ONE (14:30)
[2023-01-27] MEDS ORDERED: HYDROcodone/ACETAMINOPHEN 5 MG/325 MG TABLET ONE (14:35)
--- NOTE | 2023-01-27 14:37 | Anesthesia-General Post-Op ---
General Patient Condition Mental Status/LOC: Same as Preop Cardiovascular: Satisfactory Nausea/Vomiting: Absent Respiratory: Satisfactory Pain: Controlled Complications: Absent Post Op Complications Complications None Follow Up Care/Instructions Patient Instructions None needed. Anesthesia/Patient Condition Patient Condition Patient is doing well, no complaints, stable vital signs, no apparent adverse anesthesia problems. No complications reported per nursing. ASHU SALAMANCA CRNA Jan 27, 2023 14:37
--- NOTE | 2023-01-27 17:26 | Diagnostic Imaging Report ---
INDICATION: Intraoperative cholangiogram. A single fluoroscopic spot spot image shows opacification of the cystic duct remnant. The extrahepatic bile ducts spilling into the duodenum. No filling defect or stricture. No pathological finding. 6.8 seconds of actual fluoroscopy time utilized. IMPRESSION: Fluoroscopy utilized during intraoperative cholangiogram. Images submitted showed no pathological finding. Dictated by: Dictated on workstation # [id number]
== END 2023-01-27 15:25 | disposition home or self-care (01) ==
LOC: SDC 09:41
PROVIDERS: ATTEND Surgery
DX: K81.1 Chronic cholecystitis (principal); F17.210 Nicotine dependence, cigarettes, uncomplicated
CPT/HCPCS: 76000; 87081; 94664